=== PATIENT | female | born 1995 | race Hispanic/Latino ===

== ENCOUNTER 2016-06-25 16:36 | Outpatient (CLI) | payer MEDICAID | END 2016-06-25 16:37 | disposition home or self-care (01) | LOC: LAB 16:36 | PROVIDERS: ATTEND Specialist | DX: O36.0190 Maternal care for anti-D [Rh] antibodies, unspecified trimester, not applicable or unspecified (principal); Z3A.00 Weeks of gestation of pregnancy not specified | CPT/HCPCS: 86850; 86900; 86901 ==